=== PATIENT | male | born 1990 | race American Indian/Alaskan Native ===

== ENCOUNTER 2018-07-02 11:20 | Outpatient (CLI) | payer OTHER ==
--- NOTE | 2018-07-03 09:33 | XRay Report ---
LUMBAR SPINE RADIOGRAPHS INDICATION: Low back pain. COMPARISON: None similar at this institution. FINDINGS: AP and lateral lumbar spine radiographs demonstrate somewhat sclerotic bones with prominent spinal endplate concavities. T12-L2 degenerative spurring also noted. Upper to mid lumbar disc narrowing also not excluded. Intact SI joints. Nonobstructive bowel gas pattern. Probable cholecystectomy clips. CONCLUSION: Upper lumbar degenerative changes and probable cholecystectomy clips in this patient with suspected sickle cell. Please correlate. Thank you for the opportunity to participate in this patient's care.
== END 2018-07-02 11:21 | disposition home or self-care (01) ==
LOC: XRAY 11:20
PROVIDERS: ATTEND Internal Medicine
DX: Z02.71 Encounter for disability determination (principal); M47.896 Other spondylosis, lumbar region
CPT/HCPCS: 72100

== ENCOUNTER 2022-06-17 02:52 | Emergency (ER) | payer OTHER ==
[2022-06-17 04:07] VITALS: BP 128/76
--- NOTE | 2022-06-17 04:39 | XRay Report ---
CHEST 2 VIEWS INDICATION / CLINICAL INFORMATION: chestpain. COMPARISON: None available. FINDINGS: SUPPORT DEVICES: None. HEART / MEDIASTINUM: Heart size and mediastinal contour appear within normal limits. LUNGS / PLEURA: No significant pulmonary or pleural abnormality. No pneumothorax. BONES: The vertebral bodies and humeral heads appear compatible with sequelae of sickle cell anemia. ADDITIONAL FINDINGS: No significant additional findings. IMPRESSION: 1. No active cardiopulmonary disease. Signer Name: Tony Ramon II, MD Signed: 06/17/2022 4:35 AM Workstation Name: [id number]
[2022-06-17] MEDS ORDERED: CYCLOBENZAPRINE 10 MG TAB PO ONE (04:40)
[2022-06-17] MEDS ORDERED: IBUPROFEN 600 MG TAB PO ONE (04:40)
[2022-06-17] MEDS ORDERED: ACETAMINOPHEN 500 MG TAB PO ONE (04:40)
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
--- NOTE | 2022-06-17 10:06 | Electrocardiograph Report ---
[facility] Test Date: 2022-06-17 Test Time: 04:04:13 Pat Name: MAIRA GONZALEZ Department: Room: Gender: M [employer] Clerk: DANIELLE : 1990 Requested By: PITER JARRELL Order Number: [id number] Reading MD: Chandan Daniels Measurements Intervals [place] Rate: 98 P: 66 SC: 161 QRS: 72 QRSD: 85 T: 59 QT: 334 QTc: 427 Interpretive Statements Sinus rhythm Biatrial enlargement No previous ECG available for comparison Electronically Signed On 06-17-2022 10:06:18 EDT by Chandan Daniels
== END 2022-06-17 05:44 | disposition home or self-care (01) ==
LOC: ED 02:52
DX: S43.409A Unspecified sprain of unspecified shoulder joint, initial encounter (principal); S20.219A Contusion of unspecified front wall of thorax, initial encounter; Z88.8 Allergy status to other drugs, medicaments and biological substances; V89.2XXA Person injured in unspecified motor-vehicle accident, traffic, initial encounter; Y93.89 Activity, other specified; Y92.89 Other specified places as the place of occurrence of the external cause; Y99.8 Other external cause status
CPT/HCPCS: 71046; 93005; 99283